=== PATIENT | male | born 1985 | race Hispanic/Latino ===

== ENCOUNTER 2018-07-04 00:01 | Emergency (ER) | payer OTHER ==
[~2018-07-04] VITALS: Ht 180.3 cm; Wt 86.2 kg
[2018-07-04] MEDS ORDERED: KETOROLAC TROMETHAMINE 30 MG/ML VIAL IV STA (00:14)
[2018-07-04] MEDS ORDERED: ASPIRIN 81 MG CHEW TAB PO ONE (00:15)
[2018-07-04 00:23] LABS: BASOPHILS # (AUTO) 0.1 (0.0-0.1); BASOPHILS % 0.9 % (0.0-1.0); EOSINOPHILS # (AUTO) 1.2 (0.0-0.4); EOSINOPHILS % 8.9 % (0.0-6.0); HEMATOCRIT 44.4 % (38.2-49.6); LYMPHOCYTES # (AUTO) 3.7 (1.0-3.2); LYMPHOCYTES % 28.3 % (18.0-39.1); MEAN CORPUSCULAR HGB CONC 33.8 g/dL (31-35); MEAN CORPUSCULAR VOLUME 91.7 fL (81-99); MONOCYTES # (AUTO) 0.9 (0.2-0.8); MONOCYTES % 6.8 % (4.4-11.3); NEUTROPHILS # (AUTO) 7.1 (2.1-6.9); NEUTROPHILS % 54.7 % (38.7-80.0); PLATELET COUNT 392 x10e3/uL (140-360); RED BLOOD COUNT 4.84 x10e6/uL (4.3-5.7); RED CELL DISTRIBUTION WIDTH 12.9 % (11.7-14.4)
[2018-07-04 00:34] LABS: INR 0.86; PARTIAL THROMBOPLASTIN TIME 32.4 seconds (23.8-35.5); PROTHROMBIN TIME 12.5 seconds (11.9-14.5)
--- NOTE | 2018-07-04 01:14 | Diagnostic Imaging Report ---
EXAMINATION: CHEST SINGLE (NOT PORTABLE) INDICATION: Chest pain COMPARISON: None FINDINGS: AP view TUBES and LINES: None. LUNGS: Lungs are well inflated. Lungs are clear. There is no evidence of pneumonia or pulmonary edema. PLEURA: No pleural effusion or pneumothorax. HEART AND MEDIASTINUM: The cardiomediastinal silhouette is unremarkable. BONES AND SOFT TISSUES: No acute osseous lesion. Soft tissues are unremarkable. UPPER ABDOMEN: No free air under the diaphragm. IMPRESSION: No acute thoracic abnormality. Signed by: DR. Jared Garcia MD on 07/04/2018 1:10 AM
[2018-07-04 01:21] LABS: ALANINE AMINOTRANSFERASE 13 IU/L (0-55); ALBUMIN 4.3 g/dL (3.5-5.0); ALBUMIN/GLOBULIN RATIO 1.3 (0.8-2.0); ALKALINE PHOSPHATASE 63 IU/L (40-150); BLOOD UREA NITROGEN 13 mg/dL (7-26); CALCIUM 9.8 mg/dL (8.4-10.2); CARBON DIOXIDE 27 mmol/L (22-29); CREATINE KINASE 144 IU/L (30-200); GLUCOSE 100 mg/dL (74-118)
[2018-07-04 01:53] LABS: BUN/CREATININE RATIO 12 (6-25); CHLORIDE 103 mmol/L (98-107); CREATININE, SERUM 0.99 mg/dL (0.72-1.25); EST GLOMERULAR FILTRATION RATE > 60 ML/MIN (60-); POTASSIUM 3.3 mmol/L (3.5-5.1); SODIUM 141 mmol/L (136-145)
[2018-07-04 01:54] LABS: ANION GAP 14.3 mmol/L (8-16)
[2018-07-04] MEDS ORDERED: POTASSIUM CHLORIDE 20 MEQ TAB CR PO STA ×2 (02:16→02:51)
[2018-07-04 03:11] VITALS: BP 128/83
== END 2018-07-04 03:23 | disposition home or self-care (01) ==
LOC: ER 00:01
DX: R07.89 Other chest pain (principal); M25.511 Pain in right shoulder; E87.6 Hypokalemia; K52.9 Noninfective gastroenteritis and colitis, unspecified; Z87.891 Personal history of nicotine dependence
CPT/HCPCS: 36415; 71045; 80053; 82550; 82553; 84484; 85025; 85610; 85730; 93005; 99284; J1885